=== PATIENT | female | born 1995 | race Caucasian/White ===

== ENCOUNTER 2017-01-09 15:44 | Emergency (ER) | payer SELFPAY ==
[2017-01-09 16:55] LABS: BASOPHILS 0.2 % (0-2); EOSINOPHILS 0.8 % (0-7); HEMATOCRIT 41.3 % (36.0-48.0); HEMOGLOBIN 13.9 g/dL (12-16); IMMATURE GRANULOCYTES 0.2 % (0-5); LYMPHOCYTES 29.1 % (15-50); MCH 31.8 pg (26.0-34.0); MCHC 33.7 g/dL (31.0-37.0); MCV 94.5 fL (80.0-100.0); MEAN PLATELET VOLUME 9.7 fL (7.4-10.4); MONOCYTES 10.2 % (2-11); NEUTROPHILS 59.5 % (40-80); PLATELET COUNT 249 10x3/uL (130-400); RBC 4.37 10x6/uL (4.00-5.40); RDW 12.4 % (11.5-14.5); WBC 6.2 10x3/uL (4.8-10.8)
[2017-01-09 17:37] LABS: ALKALINE PHOSPHATASE 66 U/L (46-116); ALT (SGPT) 24 U/L (10-68); BILIRUBIN - TOTAL 0.42 mg/dL (0.2-1.3); CALC OSMOLALITY 278 mosm/kg (275-300); CARBON DIOXIDE 26.5 mmol/L (21.0-32.0); CHLORIDE - SERUM 105 mmol/L (98-107); CREATININE - SERUM 0.9 mg/dL (0.6-1.3); GLUCOSE 98 mg/dL (74-106); POTASSIUM - SERUM 3.6 mmol/L (3.5-5.1); SODIUM 140 mmol/L (136-145); UREA NITROGEN 13 mg/dL (7-18); eGFR NON AFRICAN AMERICAN 82 mL/min (90-120)
[2017-01-09 18:06] LABS: HCG SERUM NEGATIVE (NEGATIVE)
== END 2017-01-09 20:13 | disposition home or self-care (01) ==
LOC: D.ER 15:44
PROVIDERS: Family Medicine
DX: S06.0X9A Concussion with loss of consciousness of unspecified duration, initial encounter (principal); V43.52XA Car driver injured in collision with other type car in traffic accident, initial encounter; Y93.89 Activity, other specified; Y92.410 Unspecified street and highway as the place of occurrence of the external cause; S16.1XXA Strain of muscle, fascia and tendon at neck level, initial encounter; S29.012A Strain of muscle and tendon of back wall of thorax, initial encounter; S39.012A Strain of muscle, fascia and tendon of lower back, initial encounter; B19.20 Unspecified viral hepatitis C without hepatic coma

== ENCOUNTER 2018-04-09 20:57 | Emergency (ER) | payer SELFPAY ==
[~2018-04-09] VITALS: Ht 167.6 cm; Wt 63.6 kg
[2018-04-09 21:09] VITALS: Ht 167.6 cm; Wt 63.6 kg
[2018-04-09] MEDS ORDERED: TORADOL10 MG PO (23:33)
[2018-04-09 23:45] VITALS: BP 133/89
== END 2018-04-09 23:45 | disposition home or self-care (01) ==
LOC: D.ER 20:57
DX: S51.812A Laceration without foreign body of left forearm, initial encounter (principal); W26.8XXA Contact with other sharp object(s), not elsewhere classified, initial encounter; Y93.89 Activity, other specified; Y92.89 Other specified places as the place of occurrence of the external cause

== ENCOUNTER 2018-11-22 22:03 | Emergency (ER) | payer MEDICAID ==
[~2018-11-22 22:03] MED LIST: TORADOL10 MG PO
[2018-11-22 22:06] VITALS: BP 128/77; BMI 23.6
[2018-11-22] MEDS ORDERED: CLEOCIN HCL150 MG PO (22:34)
--- NOTE | 2018-11-22 23:59 | NUR ---
PATIENT ASSESSES FOR SUICIDE RISK, PATIENT NOT CURRENTLY HAVING THOUGHT ABOUT SUIDIDE, SHE STATES THAT SHE FREGUENTLY ANS SUICIDAL IDEATION BUT IS NO GOING TO ACT ON THEM AT THIS TIME, PATIENT HER FOR SELF INFLICTED SCRATCHES ON HER LEFT ARM FROM LAST WEEK THAT SHE WANTED LOOKED AT [facility] THEY BECAME INFECTED. PATIENT DISCHARGED BY PHYSICIAN AFTER ASSESSMENT.
== END 2018-11-22 23:13 | disposition home or self-care (01) ==
LOC: D.ER 22:03
DX: T81.40XA Infection following a procedure, unspecified, initial encounter (principal)

== ENCOUNTER 2018-12-02 17:57 | Emergency (ER) | payer MEDICAID ==
[~2018-12-02] VITALS: Ht 167.6 cm; Wt 66.4 kg
[~2018-12-02 17:57] MED LIST changes: +CLEOCIN HCL150 MG PO
[2018-12-02 18:22] VITALS: Ht 167.6 cm; Wt 66.4 kg
[2018-12-02] MEDS ORDERED: VOLTAREN75 MG PO (19:07)
[2018-12-02] MEDS ORDERED: BACLOFEN20 M1 PO (19:07)
[2018-12-02 20:14] VITALS: BP 122/76
== END 2018-12-02 20:14 | disposition home or self-care (01) ==
LOC: D.ER 17:57
DX: S39.012A Strain of muscle, fascia and tendon of lower back, initial encounter (principal); X58.XXXA Exposure to other specified factors, initial encounter; Y93.89 Activity, other specified; Y92.89 Other specified places as the place of occurrence of the external cause

== ENCOUNTER 2020-11-01 16:34 | Emergency (ER) | payer BC ==
[~2020-11-01] VITALS: Ht 167.6 cm; Wt 69.5 kg
[~2020-11-01 16:34] MED LIST changes: +BACLOFEN20 M1 PO; +VOLTAREN75 MG PO
[2020-11-01 17:04] VITALS: BP 135/86; Ht 167.6 cm; Wt 69.5 kg
== END 2020-11-01 19:10 | disposition home or self-care (01) ==
LOC: D.ER 16:34
DX: J02.0 Streptococcal pharyngitis (principal); Z72.0 Tobacco use